=== PATIENT | female | born 1995 | race Caucasian/White ===

== ENCOUNTER 2018-09-15 19:43 | Emergency (ER) | payer OTHER ==
--- NOTE | 2018-09-15 21:11 | ERPHSYRPT ---
- History of Present Illness Time Seen by Provider: 09/15/18 21:07 Source: patient, family Exam Limitations: no limitations Patient Subjective Stated Complaint: pt states she has been having vaginal pain and pain after urinating, and urinary frequency Triage Nursing Assessment: pt alert and oriented, answers questions approp. respirations nonlabored with lungs cta. abd soft and nontender to light palpation. pt ambulatory with steady gati noted. respirations nonlabored with lungs cta. urine clear yellow. Physician History: The patient is a 22-year-old female with her mother complaining that she had a sudden onset of urinary urgency, frequency, and burning with urination that began at 3 PM today. She denies fever or chills. She denies back pain. She is on the Depo shot and has not been sexually active for months. She takes no prescription medicines. She did take a 600 mg ibuprofen 2 hours ago. The patient had a bowel movement today. She has 1 normally about one time a week. Her past medical history is significant for cholecystectomy and . Timing/Duration: today Activites at Onset: none Quality: burning Onset Location: urethral Pain Radiation: none Severity of Pain-Max: moderate Severity of Pain-Current: moderate Prior abdominal problems: none Sexual intercourse history: greater than 2 months ago Modifying Factors: Improves With: analgesics, urinating Associated Symptoms: urinary frequency, No loss of bladder control Allergies/Adverse Reactions: latex Allergy (Verified 09/15/18 20:32) Hx Tetanus, Diphtheria Vaccination/Date Given: No Hx Influenza Vaccination/Date Given: Yes (2017) Hx Pneumococcal Vaccination/Date Given: No - Review of Systems Constitutional: No Fever, No Chills Eyes: No Symptoms Ears, Nose, & Throat: No Symptoms Respiratory: No Cough, No Dyspnea Cardiac: No Chest Pain, No Edema, No Syncope Abdominal/Gastrointestinal: No Abdominal Pain, No Nausea, No Vomiting, No Diarrhea Genitourinary Symptoms: Dysuria, Frequency, Urgency Musculoskeletal: No Back Pain, No Neck Pain Skin: No Rash Neurological: No Dizziness, No Focal Weakness, No Sensory Changes Psychological: No Symptoms Endocrine: No Symptoms Hematologic/Lymphatic: No Symptoms Immunological/Allergic: No Symptoms All Other Systems: Reviewed and Negative - Past Medical History Pertinent Past Medical History: No Neurological History: No Pertinent History ENT History: No Pertinent History Respiratory History: Asthma Endocrine Medical History: No Pertinent History Musculoskeletal History: No Pertinent History GI Medical History: No Pertinent History History: No Pertinent History Psycho-Social History: No Pertinent History - Past Surgical History Past Surgical History: Yes Neuro Surgical History: No Pertinent History Cardiac: No Pertinent History Respiratory: No Pertinent History Gastrointestinal: Cholecystectomy Genitourinary: No Pertinent History Musculoskeletal: No Pertinent History Female Surgical History: Section - Social History Smoking Status: Never smoker Exposure to second hand smoke: No Drug Use: none Patient Lives Alone: No - Female History Hx Last Menstrual Period: depo shot Hx Now: No - Nursing Vital Signs Nursing Vital Signs: Initial Vital Signs Temperature 98.1 F 09/15/18 20:23 Pulse Rate 66 09/15/18 20:23 Respiratory Rate 18 09/15/18 20:23 Blood Pressure 142/95 09/15/18 20:23 O2 Sat by Pulse Oximetry 100 09/15/18 20:23 Pain Scale Pain Intensity 2 - Physical Exam General Appearance: mild distress Eye Exam: PERRL/EOMI, eyes nml inspection Ears, Nose, Throat Exam: normal ENT inspection, TMs normal, pharynx normal, moist mucous membranes Neck Exam: normal inspection, non-tender, supple, full range of motion Respiratory Exam: normal breath sounds, lungs clear, No respiratory distress Cardiovascular Exam: regular rate/rhythm, normal heart sounds, normal peripheral pulses Gastrointestinal/Abdomen Exam: soft, No tenderness, No mass Pelvic Exam: not done Rectal Exam: not done Back Exam: normal inspection, normal range of motion, No CVA tenderness, No vertebral tenderness Extremity Exam: normal inspection, normal range of motion, pelvis stable Neurologic Exam: alert, oriented x 3, cooperative, logger driving horses II-XII nml as tested, normal mood/affect, sensation nml, No motor deficits Skin Exam: normal color, warm, dry Lymphatic Exam: No adenopathy SpO2 Interpretation: normal SpO2: 100 Oxygen Delivery: Room Air - CT Exams Abdomen/Pelvis CT Interpretation: Tele-radiologist Report (per Dr Lund), No appendicitis, Other (no acute findings.) Ordered Tests: Active Orders 24 hr Category Date Time Status IV Insertion STAT Care 09/15/18 22:02 Active ABDOMEN AND PELVIS W/0 CONTRAS [CT] Stat Exams 09/15/18 22:56 Taken CBC W DIFF Stat Lab 09/15/18 22:21 Completed CMP Stat Lab 09/15/18 22:21 Completed CULTURE,URINE Stat Lab 09/15/18 21:24 Received HCG QUALITATIVE,SERUM Stat Lab 09/15/18 22:21 Completed LIPASE Stat Lab 09/15/18 22:21 Completed Lactic Acid Stat Lab 09/15/18 22:14 Completed UA W/RFX UR CULTURE Stat Lab 09/15/18 21:24 Completed Medication Summary Discontinued Medications Generic Name Dose Route Start Last Admin Trade Name Freq PRN Reason Stop Dose Admin Ketorolac Tromethamine 30 mg 09/15/18 22:14 09/15/18 22:23 Toradol 30 Mg Injection IV 09/15/18 22:15 30 mg STAT ONE Administration Ketorolac Tromethamine Confirm 09/15/18 22:22 Toradol 30 Mg Injection Administered 09/15/18 22:23 Dose 30 mg .ROUTE .STK-MED ONE Phenazopyridine HCl 200 mg 09/15/18 21:11 09/15/18 21:19 Pyridium 200 Mg PO 09/15/18 21:12 200 mg TID STA Administration Phenazopyridine HCl Confirm 09/15/18 21:17 Pyridium 200 Mg Administered 09/15/18 21:18 Dose 200 mg .ROUTE .STK-MED ONE Lab/Rad Data: Laboratory Result Diagrams 09/15/18 22:21 09/15/18 22:21 Laboratory Results 09/15/18 09/15/18 09/15/18 Range/Units 22:21 22:21 22:21 WBC 12.8 H (4.0-10.5) K/mm3 RBC 4.39 (4.1-5.4) M/mm3 Hgb 13.2 (12.0-16.0) gm/dl Hct 39.9 (35-47) % MCV 90.9 (78-100) fl MCH 30.1 (26-32) pg MCHC 33.1 (32-36) g/dl RDW 13.0 (11.5-14.0) % Plt Count 220 (150-450) K/mm3 MPV 10.0 H (6-9.5) fl Gran % 64.4 (36.0-66.0) % Eos # (Auto) 0.06 (0-0.5) Absolute Lymphs (auto) 3.91 (1.0-4.6) Absolute Monos (auto) 0.57 (0.0-1.3) Lymphocytes % 30.5 (24.0-44.0) % Monocytes % 4.4 (0.0-12.0) % Eosinophils % 0.5 (0.00-5.0) % Basophils % 0.2 (0.0-0.4) % Absolute Granulocytes 8.26 H (1.4-6.9) Basophils # 0.02 (0-0.4) Sodium 142 (137-145) mmol/L Potassium 3.5 (3.5-5.1) mmol/L Chloride 107 (98-107) mmol/L Carbon Dioxide 23 (22-30) mmol/L Anion Gap 15.5 H (5-15) MEQ/L BUN 10 (7-17) mg/dL Creatinine 0.62 (0.52-1.04) mg/dL Estimated GFR > 60.0 ML/MIN Glucose 97 (74-106) mg/dL Lactic Acid (0.4-2.0) Calcium 9.0 (8.4-10.2) mg/dL Total Bilirubin 0.50 (0.2-1.3) mg/dL AST 19 (14-36) U/L ALT 17 (0-35) U/L Alkaline Phosphatase 91 (38-126) U/L Serum Total Protein 7.7 (6.3-8.2) g/dL Albumin 4.2 (3.5-5.0) g/dL Lipase 46 (23-300) U/L Serum , Qual NEGATIVE (Negative) Urine Color (YELLOW) Urine Appearance (CLEAR) Urine pH (5-6) Ur Specific [place] (1.005-1.025) Urine Protein (Negative) Urine Ketones (NEGATIVE) Urine Blood (0-5) Woo/ul Urine Nitrite (NEGATIVE) Urine Bilirubin (NEGATIVE) Urine Urobilinogen (0-1) mg/dL Ur Leukocyte Esterase (NEGATIVE) Urine WBC (Auto) (0-5) /HPF Urine RBC (Auto) (0-2) /HPF U Epithel Cells (Auto) (FEW) /HPF Urine Bacteria (Auto) (NEGATIVE) /HPF Other Casts (Auto) (NEGATIVE) /LPF Urine Mucus (Auto) (NEGATIVE) /HPF Urine Culture Reflexed (NO) Urine Glucose (NEGATIVE) mg/dL 12/19/18 12/19/18 Range/Units 22:14 21:24 WBC (4.0-10.5) K/mm3 RBC (4.1-5.4) M/mm3 Hgb (12.0-16.0) gm/dl Hct (35-47) % MCV (78-100) fl MCH (26-32) pg MCHC (32-36) g/dl RDW (11.5-14.0) % Plt Count (150-450) K/mm3 MPV (6-9.5) fl Gran % (36.0-66.0) % Eos # (Auto) (0-0.5) Absolute Lymphs (auto) (1.0-4.6) Absolute Monos (auto) (0.0-1.3) Lymphocytes % (24.0-44.0) % Monocytes % (0.0-12.0) % Eosinophils % (0.00-5.0) % Basophils % (0.0-0.4) % Absolute Granulocytes (1.4-6.9) Basophils # (0-0.4) Sodium (137-145) mmol/L Potassium (3.5-5.1) mmol/L Chloride (98-107) mmol/L Carbon Dioxide (22-30) mmol/L Anion Gap (5-15) MEQ/L BUN (7-17) mg/dL Creatinine (0.52-1.04) mg/dL Estimated GFR ML/MIN Glucose (74-106) mg/dL Lactic Acid 1.7 (0.4-2.0) Calcium (8.4-10.2) mg/dL Total Bilirubin (0.2-1.3) mg/dL AST (14-36) U/L ALT (0-35) U/L Alkaline Phosphatase (38-126) U/L Serum Total Protein (6.3-8.2) g/dL Albumin (3.5-5.0) g/dL Lipase (23-300) U/L Serum , Qual (Negative) Urine Color STRAW (YELLOW) Urine Appearance CLEAR (CLEAR) Urine pH 6.0 (5-6) Ur Specific [place] 1.009 (1.005-1.025) Urine Protein NEGATIVE (Negative) Urine Ketones NEGATIVE (NEGATIVE) Urine Blood MODERATE (0-5) Woo/ul Urine Nitrite NEGATIVE (NEGATIVE) Urine Bilirubin NEGATIVE (NEGATIVE) Urine Urobilinogen NEGATIVE (0-1) mg/dL Ur Leukocyte Esterase LARGE (NEGATIVE) Urine WBC (Auto) 3-5 (0-5) /HPF Urine RBC (Auto) 0-2 (0-2) /HPF U Epithel Cells (Auto) RARE (FEW) /HPF Urine Bacteria (Auto) RARE (NEGATIVE) /HPF Other Casts (Auto) NEGATIVE (NEGATIVE) /LPF Urine Mucus (Auto) SLIGHT (NEGATIVE) /HPF Urine Culture Reflexed YES (NO) Urine Glucose NEGATIVE (NEGATIVE) mg/dL - Progress Progress: improved Progress Note: 09/16/18 00:40 I discussed the findings of the labs results and of the imaging study of her abdomen and pelvis. The patient was offered a gynecologic exam and the patient declined. The patient requested antibiotics for possible UTI. The patient will be given Rocephin 1 g IV. She is then to follow-up with her primary medical doctor in one to 2 days. Blood Culture(s) Obtained: No Antibiotics given: Yes - Departure Time of Disposition: 00:41 Departure Disposition: Home Clinical Impression: Abdominal pain Condition: Stable Critical Care Time: No Referrals: CASS TOURE MD [Primary Care Provider] - Additional Instructions: You have some abdominal pain and a mild elevation of your white count. You were given Toradol 30 mg IV and Rocephin 1 g by IV in the ER. Continue with ciprofloxacin 500 mg 2 times a day for 7 days. Follow-up with your primary medical doctor in one to 2 days. Prescriptions: Ciprofloxacin [Cipro 500 MG] 1 tab PO BID #14 tablet
[2018-09-15] MEDS ORDERED: PYRIDIUM 200 MG ONE (21:17)
[2018-09-15] MEDS: PYRIDIUM 200 MG PO STA (21:19)
[2018-09-15 21:33] LABS: Appearance CLEAR (CLEAR); Bilirubin NEGATIVE (NEGATIVE); Blood MODERATE Ery/ul (0-5); Glucose NEGATIVE (NEGATIVE); Ketones NEGATIVE (NEGATIVE); Leukocyte Esterase LARGE (NEGATIVE); Nitrite NEGATIVE (NEGATIVE); Protein,Urine Dip NEGATIVE (Negative); Specific Gravity 1.009 (1.005-1.025); Urobilinogen NEGATIVE mg/dL (0-1)
[2018-09-15] MEDS ORDERED: TORAdol 30 mg Injection ONE (22:22)
[2018-09-15] MEDS: TORAdol 30 mg Injection IV ONE (22:23)
[2018-09-15 22:27] LABS: BASOPHIL % 0.2 % (0.0-0.4); Basophil (Absolute #) 0.02 (0-0.4); Eosinophil % 0.5 % (0.00-5.0); Eosinophil (Absolute #) 0.06 (0-0.5); Granulocyte Absolute (ANC) 8.26 (1.4-6.9); Granulocytes % 64.4 % (36.0-66.0); Hematocrit 39.9 % (35-47); Hemoglobin 13.2 gm/dl (12.0-16.0); Lymphocyte (Absolute #) 3.91 (1.0-4.6); Lymphocytes % 30.5 % (24.0-44.0); Mean Cell Volume 90.9 fl (78-100); Mean Corpuscular Hemoglobin 30.1 pg (26-32); Mean Corpuscular Hgb Concent. 33.1 g/dl (32-36); Monocyte (Absolute #) 0.57 (0.0-1.3); Monocytes % 4.4 % (0.0-12.0); Platelet Count 220 K/mm3 (150-450); Red Blood Count 4.39 M/mm3 (4.1-5.4); White Blood Count 12.8 K/mm3 (4.0-10.5)
[2018-09-15 22:40] LABS: ALBUMIN 4.2 g/dL (3.5-5.0); ALKALINE PHOSPHATASE 91 U/L (38-126); ANION GAP 15.5 MEQ/L (5-15); BLOOD UREA NITROGEN 10 mg/dL (7-17); CHLORIDE 107 mmol/L (98-107); Carbon Dioxide 23 mmol/L (22-30); Creatinine 1 0.62 mg/dL (0.52-1.04); Glucose 97 mg/dL (74-106); LIPASE 46 U/L (23-300); Potassium 3.5 mmol/L (3.5-5.1); SGOT/AST 19 U/L (14-36); SGPT/ALT 17 U/L (0-35); SODIUM 142 mmol/L (137-145); Total Protein 7.7 g/dL (6.3-8.2)
[2018-09-16] MEDS ORDERED: ROCEPHIN 1 Gm-D5w 50 ml Bag** 1 G/50 ML IVPB IV ONE (00:46)
[2018-09-16] MEDS: ROCEPHIN 1 Gm-D5w 50 ml Bag** 1 G/50 ML IVPB IV STA (00:50)
[2018-09-16 01:23] VITALS: BP 118/72; PULSE 84; O2SAT 99
--- NOTE | 2018-09-16 08:49 | XRAY ---
Indication: Left pelvic pain. Elevated WBC. Multiple contiguous axial images obtained through the abdomen and pelvis without contrast as ordered. Comparison: April 23, 2016. Lung bases remain clear. Heart is not enlarged. Noncontrasted stomach and bowel loops appear nonobstructed. Appendix not seen. There is now mild diffuse scattered colonic fecal debris throughout. No free fluid/air. Again previous cholecystectomy. Remaining liver, pancreas, spleen, adrenal glands, kidneys, ureters, bladder, uterus, and aorta appear unremarkable for noncontrast exam. Osseous structures intact. No ventral or inguinal hernias. Impression: 1. Mild fecal stasis without obstruction. 2. Remaining CT abdomen/pelvis without contrast exam is negative. Comment: Preliminary interpretation was made by [facility]. No critical discrepancy. CT DI 27.05
== END 2018-09-16 01:45 | disposition home or self-care (01) ==
LOC: ED 19:43
DX: R10.9 Unspecified abdominal pain (principal); R39.15 Urgency of urination; R35.0 Frequency of micturition; D72.829 Elevated white blood cell count, unspecified
CPT/HCPCS: 36000; 36415; 74176; 80053; 81001; 81025; 83605; 83690; 85025; 87077; 87086; 87186; 96374; 99284; J0696; J1885; A9270-GY

== ENCOUNTER 2020-05-19 15:54 | Emergency (ER) | payer BC ==
[2020-05-19] MEDS ORDERED: Zofran 4 MG/2 ML VIAL IV ONE (16:24)
[2020-05-19] MEDS ORDERED: Sodium Chloride 0.9% 1000 ML 1,000 ML IV STA (16:24)
[2020-05-19 17:02] LABS: Appearance CLEAR (CLEAR); Bacteria MODERATE /HPF (NEGATIVE); Bilirubin NEGATIVE (NEGATIVE); Blood NEGATIVE Ery/ul (0-5); Epithelial Cells RARE /HPF (FEW); Glucose NEGATIVE (NEGATIVE); Ketones NEGATIVE (NEGATIVE); Leukocyte Esterase NEGATIVE (NEGATIVE); Mucus SLIGHT /HPF (NEGATIVE); Nitrite NEGATIVE (NEGATIVE); Protein,Urine Dip NEGATIVE (Negative); Specific Gravity 1.005 (1.005-1.025); Urobilinogen NEGATIVE mg/dL (0-1)
--- NOTE | 2020-05-19 17:05 | ERPHSYRPT ---
- History of Present Illness Time Seen by Provider: 05/19/20 16:12 Historian: patient Exam Limitations: no limitations Patient Subjective Stated Complaint: pt here for vomiting since last night, she has tonils removed thursday, she took zofran at 1400 today. Triage Nursing Assessment: pt alert, walked in with face mask on, resp easy, skin w/d/p, abd soft, no bleeding from throat Physician History: 24 years old female presented in the ER with chief complaint of sudden onset nausea vomiting since yesterday. Patient report having tonsillectomy 5 days ago and has decreased oral intake for a few days. She has multiple episodes of nonprojectile, nonbilious vomiting with no hematemesis. She has taken Zofran at home with no significant relief. She denies any abdominal pain. Last bowel movement 5 days ago. Patient does have history of constipation which is quite normal for her to have a bowel movement once a week. No fever or chills reported. She has some soreness in the throat which is improving since surgery. No fever or chills reported. Feels weak and dehydrated. Patient reports taking liquid hydrocodone every 4 hour since her surgery along with ibuprofen. Allergies/Adverse Reactions: latex Allergy (Verified 05/19/20 16:09) Home Medications: Citalopram Hydrobromide [Citalopram HBr] 1 ea DAILY 05/19/20 [History] Hydrocodone/Acetaminophen [Hydrocodone-Acetamn 7.5-325/15] 1 ea QID 05/19/20 [History] Ibuprofen 10 ml TID 05/19/20 [History] Ondansetron [Ondansetron Odt] 1 ea TID 05/19/20 [History] Hx Tetanus, Diphtheria Vaccination/Date Given: Yes Hx Influenza Vaccination/Date Given: Yes Hx Pneumococcal Vaccination/Date Given: No Immunizations Up to Date: Yes Travel Risk - International Travel Have you traveled outside of the country in past 3 weeks: No - Coronavirus Screening Are you exhibiting any of the following symptoms?: Yes Symptoms: Vomiting/Diarrhea Close contact with a COVID-19 positive Pt in past 14-21 Days: No - Review of Systems Constitutional: Fatigue, Weakness Eyes: No Symptoms Ears, Nose, & Throat: Throat Pain, Throat Swelling, Painful Swallowing Respiratory: No Symptoms Cardiac: No Symptoms Abdominal/Gastrointestinal: Nausea, Vomiting, Constipation Genitourinary Symptoms: No Symptoms Musculoskeletal: No Symptoms Skin: No Symptoms Neurological: No Symptoms Psychological: No Symptoms Endocrine: No Symptoms Hematologic/Lymphatic: No Symptoms Immunological/Allergic: No Symptoms - Past Medical History Pertinent Past Medical History: No Neurological History: No Pertinent History ENT History: No Pertinent History Respiratory History: Asthma Endocrine Medical History: No Pertinent History Musculoskeletal History: No Pertinent History GI Medical History: No Pertinent History History: No Pertinent History Psycho-Social History: No Pertinent History - Past Surgical History Past Surgical History: Yes Neuro Surgical History: No Pertinent History Cardiac: No Pertinent History Respiratory: No Pertinent History Gastrointestinal: Cholecystectomy Genitourinary: No Pertinent History Musculoskeletal: No Pertinent History Female Surgical History: Section - Social History Smoking Status: Never smoker Exposure to second hand smoke: No Drug Use: none Patient Lives Alone: No - Female History Hx Last Menstrual Period: week ago Hx Now: No - Nursing Vital Signs Nursing Vital Signs: Initial Vital Signs Temperature 98.3 F 05/19/20 15:59 Pulse Rate 71 05/19/20 15:59 Blood Pressure 151/85 05/19/20 15:59 O2 Sat by Pulse Oximetry 99 05/19/20 15:59 Pain Scale Pain Intensity 4 - Physical Exam General Appearance: no apparent distress, alert Eye Exam: PERRL/EOMI, eyes nml inspection Ears, Nose, Throat Exam: TMs normal, pharyngeal erythema (No bleeding) Neck Exam: normal inspection, supple, full range of motion Respiratory Exam: normal breath sounds, lungs clear Cardiovascular Exam: regular rate/rhythm, normal heart sounds Gastrointestinal/Abdomen Exam: soft, normal bowel sounds, No tenderness Back Exam: normal inspection Extremity Exam: normal inspection Neurologic Exam: alert, oriented x 3, cooperative Skin Exam: normal color, warm SpO2 Interpretation: normal SpO2: 99 O2 Delivery: Room Air Ordered Tests: Active Orders 24 hr Category Date Time Status IV Insertion STAT Care 05/19/20 16:24 Active NPO (ED) STAT Care 05/19/20 16:24 Active OBSTR/ACUTE ABDOMEN SERIES Stat Exams 05/19/20 16:24 Taken AMYLASE Stat Lab 05/19/20 17:01 Completed CBC W DIFF Stat Lab 05/19/20 17:01 Completed CMP Stat Lab 05/19/20 17:01 Completed HCG,QUALITATIVE URINE Stat Lab 05/19/20 16:42 Completed LIPASE Stat Lab 05/19/20 17:01 Completed UA W/RFX UR CULTURE Stat Lab 05/19/20 16:42 Completed Medication Summary Discontinued Medications Generic Name Dose Route Start Last Admin Trade Name Jaswinder PRN Reason Stop Dose Admin Sodium Chloride 1,000 mls @ 999 mls/hr 05/19/20 16:24 05/19/20 17:18 Sodium Chloride 0.9% 1000 Ml IV 05/19/20 17:24 999 mls/hr .Q1H1M STA Administration Sodium Chloride Confirm 05/19/20 17:17 Sodium Chloride 0.9% 1000 Ml Administered 05/19/20 17:18 Dose 1,000 mls @ ud .ROUTE .STK-MED ONE Ondansetron HCl 4 mg 05/19/20 16:24 05/19/20 17:18 Zofran 4 Mg/2 Ml Vial IV 05/19/20 16:25 4 mg STAT ONE Administration Ondansetron HCl Confirm 05/19/20 17:17 Zofran 4 Mg/2 Ml Vial Administered 05/19/20 17:18 Dose 4 mg .ROUTE .STK-MED ONE Lab/Rad Data: Laboratory Result Diagrams 05/19/20 17:01 05/19/20 17:01 Laboratory Results 05/19/20 05/19/20 05/19/20 Range/Units 17:01 17:01 16:42 WBC 10.1 (4.0-10.5) K/mm3 RBC 4.85 (4.1-5.4) M/mm3 Hgb 14.4 (12.0-16.0) gm/dl Hct 44.5 (35-47) % MCV 91.8 (78-100) fl MCH 29.7 (26-32) pg MCHC 32.4 (32-36) g/dl RDW 12.4 (11.5-14.0) % Plt Count 242 (150-450) K/mm3 MPV 9.5 (7.5-11.0) fl Gran % 73.0 H (36.0-66.0) % Eos # (Auto) 0.17 (0-0.5) Absolute Lymphs (auto) 2.14 (1.0-4.6) Absolute Monos (auto) 0.40 (0.0-1.3) Lymphocytes % 21.2 L (24.0-44.0) % Monocytes % 4.0 (0.0-12.0) % Eosinophils % 1.7 (0.00-5.0) % Basophils % 0.1 (0.0-0.4) % Absolute Granulocytes 7.38 H (1.4-6.9) Basophils # 0.01 (0-0.4) Sodium 137 (137-145) mmol/L Potassium 4.4 (3.5-5.1) mmol/L Chloride 99 (98-107) mmol/L Carbon Dioxide 30 (22-30) mmol/L Anion Gap 12.2 (5-15) MEQ/L BUN 7 (7-17) mg/dL Creatinine 0.57 (0.52-1.04) mg/dL Estimated GFR > 60.0 ML/MIN Glucose 97 (74-106) mg/dL Calcium 9.5 (8.4-10.2) mg/dL Total Bilirubin 0.60 (0.2-1.3) mg/dL AST 27 (14-36) U/L ALT 30 (0-35) U/L Alkaline Phosphatase 105 (38-126) U/L Serum Total Protein 8.5 H (6.3-8.2) g/dL Albumin 4.6 (3.5-5.0) g/dL Amylase 78 (30-110) U/L Lipase 24 (23-300) U/L Urine Color (YELLOW) Urine Appearance (CLEAR) Urine pH (5-6) Ur Specific [place] (1.005-1.025) Urine Protein (Negative) Urine Ketones (NEGATIVE) Urine Blood (0-5) Woo/ul Urine Nitrite (NEGATIVE) Urine Bilirubin (NEGATIVE) Urine Urobilinogen (0-1) mg/dL Ur Leukocyte Esterase (NEGATIVE) Urine WBC (Auto) (0-5) /HPF Urine RBC (Auto) (0-2) /HPF U Epithel Cells (Auto) (FEW) /HPF Urine Bacteria (Auto) (NEGATIVE) /HPF Urine Mucus (Auto) (NEGATIVE) /HPF Urine Culture Reflexed (NO) Urine Glucose (NEGATIVE) mg/dL Urine HCG, Qual NEGATIVE (Negative) 05/19/20 Range/Units 16:42 WBC (4.0-10.5) K/mm3 RBC (4.1-5.4) M/mm3 Hgb (12.0-16.0) gm/dl Hct (35-47) % MCV (78-100) fl MCH (26-32) pg MCHC (32-36) g/dl RDW (11.5-14.0) % Plt Count (150-450) K/mm3 MPV (7.5-11.0) fl Gran % (36.0-66.0) % Eos # (Auto) (0-0.5) Absolute Lymphs (auto) (1.0-4.6) Absolute Monos (auto) (0.0-1.3) Lymphocytes % (24.0-44.0) % Monocytes % (0.0-12.0) % Eosinophils % (0.00-5.0) % Basophils % (0.0-0.4) % Absolute Granulocytes (1.4-6.9) Basophils # (0-0.4) Sodium (137-145) mmol/L Potassium (3.5-5.1) mmol/L Chloride (98-107) mmol/L Carbon Dioxide (22-30) mmol/L Anion Gap (5-15) MEQ/L BUN (7-17) mg/dL Creatinine (0.52-1.04) mg/dL Estimated GFR ML/MIN Glucose (74-106) mg/dL Calcium (8.4-10.2) mg/dL Total Bilirubin (0.2-1.3) mg/dL AST (14-36) U/L ALT (0-35) U/L Alkaline Phosphatase (38-126) U/L Serum Total Protein (6.3-8.2) g/dL Albumin (3.5-5.0) g/dL Amylase (30-110) U/L Lipase (23-300) U/L Urine Color STRAW (YELLOW) Urine Appearance CLEAR (CLEAR) Urine pH 8.0 (5-6) Ur Specific [place] 1.005 (1.005-1.025) Urine Protein NEGATIVE (Negative) Urine Ketones NEGATIVE (NEGATIVE) Urine Blood NEGATIVE (0-5) Woo/ul Urine Nitrite NEGATIVE (NEGATIVE) Urine Bilirubin NEGATIVE (NEGATIVE) Urine Urobilinogen NEGATIVE (0-1) mg/dL Ur Leukocyte Esterase NEGATIVE (NEGATIVE) Urine WBC (Auto) NONE (0-5) /HPF Urine RBC (Auto) NONE (0-2) /HPF U Epithel Cells (Auto) RARE (FEW) /HPF Urine Bacteria (Auto) MODERATE (NEGATIVE) /HPF Urine Mucus (Auto) SLIGHT (NEGATIVE) /HPF Urine Culture Reflexed NO (NO) Urine Glucose NEGATIVE (NEGATIVE) mg/dL Urine HCG, Qual (Negative) - Progress Progress: improved, re-examined Progress Note: 05/19/20 19:05 She is given a fluid bolus along with Zofran, on reevaluation feeling better. She did not have any vomiting while in the ER. Has stable work-up in the ER including electrolytes and renal functions. Patient does have constipation and has been taking hydrocodone for the last few days which is worsening her c onstipation and also having some nausea vomiting associated with it. I would give her a prescription of Phenergan to take as needed as Zofran was not working earlier. Discussed signs symptoms of worsening needing return to ER which she seems understanding. Stable for discharge. Counseled pt/family regarding: lab results, diagnosis, need for follow-up, rad results - Departure Departure Disposition: Home Clinical Impression: Nausea & vomiting Qualifiers: Vomiting type: unspecified Vomiting Intractability: non-intractable Qualified Code(s): R11.2 - Nausea with vomiting, unspecified Constipation Qualifiers: Constipation type: unspecified constipation type Qualified Code(s): K59.00 - Constipation, unspecified Condition: Stable Critical Care Time: No Referrals: CASS TOURE MD [Primary Care Provider] - Follow Up with PCP/3 days Instructions: Nausea and Vomiting, Adult (DC) Additional Instructions: Take Phenergan/Zofran for nausea vomiting on alternate basis as needed. Drink plenty of fluids. Take MiraLAX and stool softener regularly. Follow-up with primary care for reevaluation. Return to ER for any worsening. Prescriptions: Promethazine HCl 25 mg [Phenergan 25 mg] 25 mg PO Q8H PRN PRN #10 tablet PRN Reason: Vomiting
[2020-05-19 17:07] LABS: Absolute Neutrophil Ct (ANC) 7.38 (1.4-6.9); BASOPHIL % 0.1 % (0.0-0.4); Basophil (Absolute #) 0.01 (0-0.4); Eosinophil % 1.7 % (0.00-5.0); Eosinophil (Absolute #) 0.17 (0-0.5); Hematocrit 44.5 % (35-47); Hemoglobin 14.4 gm/dl (12.0-16.0); Lymphocyte (Absolute #) 2.14 (1.0-4.6); Lymphocytes % 21.2 % (24.0-44.0); Mean Cell Volume 91.8 fl (78-100); Mean Corpuscular Hemoglobin 29.7 pg (26-32); Mean Corpuscular Hgb Concent. 32.4 g/dl (32-36); Mean Platelet Volume 9.5 fl (7.5-11.0); Platelet Count 242 K/mm3 (150-450); Red Blood Count 4.85 M/mm3 (4.1-5.4); Red Cell Distribution Width 12.4 % (11.5-14.0); White Blood Count 10.1 K/mm3 (4.0-10.5)
[2020-05-19] MEDS ORDERED: Sodium Chloride 0.9% 1000 ML 1,000 ML ONE (17:17)
[2020-05-19] MEDS ORDERED: Zofran 4 MG/2 ML VIAL ONE (17:17)
[2020-05-19 17:19] LABS: ALBUMIN 4.6 g/dL (3.5-5.0); ALKALINE PHOSPHATASE 105 U/L (38-126); AMYLASE 78 U/L (30-110); ANION GAP 12.2 MEQ/L (5-15); BLOOD UREA NITROGEN 7 mg/dL (7-17); CHLORIDE 99 mmol/L (98-107); Calcium 9.5 mg/dL (8.4-10.2); Carbon Dioxide 30 mmol/L (22-30); Creatinine 1 0.57 mg/dL (0.52-1.04); Glucose 97 mg/dL (74-106); LIPASE 24 U/L (23-300); Potassium 4.4 mmol/L (3.5-5.1); SGOT/AST 27 U/L (14-36); SGPT/ALT 30 U/L (0-35); SODIUM 137 mmol/L (137-145); Total Protein 8.5 g/dL (6.3-8.2)
[2020-05-19 18:20] VITALS: O2SAT 99
[2020-05-19 19:10] VITALS: BP 115/80; PULSE 70
--- NOTE | 2020-05-19 22:12 | XRAY ---
Indication: Nausea and vomiting. Comparison: None 2 view abdomen nonacute and nonobstructed with mild diffuse scattered colonic fecal debris and cholecystectomy clips. Solid organs unremarkable. Osseous structures intact with mild double curvature thoracolumbar scoliosis. Single PA chest demonstrates normal heart, lungs, and bony thorax. Impression: Mild diffuse fecal stasis. Nonacute one view chest.
== END 2020-05-19 19:16 | disposition home or self-care (01) ==
LOC: ED 15:54
DX: R11.2 Nausea with vomiting, unspecified (principal); K59.00 Constipation, unspecified; Z79.899 Other long term (current) drug therapy
CPT/HCPCS: 36000; 36415; 74022; 80053; 81001; 82150; 83690; 84703; 85025; 96374; 99284; J2405

== ENCOUNTER 2022-05-14 04:55 | Inpatient (IN) | payer OTHER ==
[2022-05-14 05:24] LABS: Appearance CLEAR (CLEAR); Bilirubin NEGATIVE (NEGATIVE); Glucose NEGATIVE (NEGATIVE); Ketones NEGATIVE (NEGATIVE)
[2022-05-14 05:25] LABS: Dipstick done @ ? MAIN LAB; Nitrite NEGATIVE (NEGATIVE); Ph 6.5 (5-6); Protein,Urine Dip NEGATIVE (Negative); RBC NEGATIVE Ery/ul (0-5); Specific Gravity 1.025 (1.005-1.025); Urobilinogen 0.2 mg/dL (0-1)
[2022-05-14] MEDS: Lactated Ringers 1,000 ML IV SCH ×2 (05:25→06:35)
[2022-05-14 05:28] LABS: Bacteria MODERATE /HPF (NEGATIVE); Epithelial Cells RARE /HPF (FEW); Mucus SLIGHT /HPF (NEGATIVE); Urine Cultured Indicated? YES
[2022-05-14 05:38] LABS: Amphetamine,Urine NEGATIVE (NEGATIVE); Barbiturate,Urine NEGATIVE (NEGATIVE); Benzodiazepine,Urine NEGATIVE (NEGATIVE); Cocaine,Urine NEGATIVE (NEGATIVE); Methadone,Urine NEGATIVE (NEGATIVE); Opiate,Urine NEGATIVE (NEGATIVE); PCP,Urine NEGATIVE (NEGATIVE); THC,Urine NEGATIVE (NEGATIVE)
[2022-05-14] MEDS ORDERED: Pepcid 20 MG VIAL IV SCH (06:00)
[2022-05-14] MEDS ORDERED: CEFAZOLIN 2 GM-D5W BAG** 2 GM/50 ML ML IV SCH (06:00)
[2022-05-14] MEDS ORDERED: SOD CITRATE-CITRIC ACID SOLN PO SCH (06:00)
[2022-05-14] MEDS ORDERED: Reglan 10 MG/2 ML IV SCH (06:00)
[2022-05-14 06:47] LABS: ABO TYPING B; Antibody Screen NEGATIVE (NEGATIVE); RH TYPING POSITIVE
[2022-05-14 06:55] LABS: Hemoglobin 11.3 g/dL (12.0-16.0); Mean Cell Volume 87.5 fL (78-100); Mean Corpuscular Hemoglobin 28.3 pg (26-32); Mean Corpuscular Hgb Concent. 32.3 g/dL (32-36); Mean Platelet Volume 10.4 fL (7.5-11.0); Platelet Count 239 x10^3/uL (150-450); Red Cell Distribution Width 13.2 % (11.5-14.0); White Blood Count 15.6 x10^3/uL (4.0-10.5)
[2022-05-14] MEDS ORDERED: Lactated Ringers 1,000 ML IV SCH (07:00)
[2022-05-14 07:01] LABS: INR 1.03 (0.8-3.0); PROTIME 10.9 SECONDS (9.4-12.5); PTT 26.8 SECONDS (25.1-36.5)
[2022-05-14] MEDS ORDERED: Pitocin 10 UNITS/ML ONE (08:21)
[2022-05-14] MEDS ORDERED: Ephedrine Sulfate 50 MG/ML ONE (08:22)
[2022-05-14] MEDS ORDERED: PHENYLEPHRINE HCL ONE (08:22)
[2022-05-14] MEDS ORDERED: Lactated Ringers 1,000 ML IV ONE (08:23)
[2022-05-14] MEDS ORDERED: Astramorph-Pf 5 MG/10 ML ONE (08:26)
[2022-05-14] MEDS ORDERED: Zofran 4 MG/2 ML VIAL ONE (08:59)
[2022-05-14] MEDS ORDERED: Transderm Scop 1.5MG Patch TOP ONE (09:18)
[2022-05-14] MEDS ORDERED: EXPAREL 133 MG/10 ML VIAL IJ ONE (09:18)
[2022-05-14] MEDS ORDERED: Sensorcaine 0.25% 10 ML ONE (09:24)
[2022-05-14] MEDS ORDERED: Mylicon 80MG PO PRN (10:00)
[2022-05-14] MEDS ORDERED: PERCOCET TABLET 5/325MG PO PRN (10:00)
[2022-05-14] MEDS ORDERED: Ambien 10 MG PO PRN (10:00)
[2022-05-14] MEDS ORDERED: Zofran 4 MG/2 ML VIAL IV PRN (10:00)
[2022-05-14] MEDS ORDERED: TUCKS TP PRN (10:00)
[2022-05-14] MEDS ORDERED: Anucort-HC SUPPOSITORY PR PRN (10:00)
[2022-05-14] MEDS ORDERED: Sodium Chloride 0.9% 10 ML FLUSH Syringe IJ PRN (10:00)
[2022-05-14] MEDS ORDERED: NORCO 5/325 MG PO PRN (10:00)
[2022-05-14] MEDS ORDERED: DEMEROL 50 MG IV PRN (10:00)
[2022-05-14] MEDS ORDERED: CLARITIN 10 MG PO PRN (10:00)
[2022-05-14] MEDS ORDERED: Nubain 10 MG/ML IV PRN (10:00)
[2022-05-14] MEDS ORDERED: Narcan 0.4 MG/ML IV PRN (10:00)
[2022-05-14] MEDS ORDERED: LANSINOH 40 GM TOP PRN (10:00)
[2022-05-14] MEDS ORDERED: HOLD NARCOTIC ANALGESICS AND SEDATIVES X24 HR MC PRN (10:00)
[2022-05-14] MEDS: Dextrose 5%-Lr IV Solution 1000 ML 1,000 ML IV SCH ×2 (10:50→19:30)
[2022-05-14 13:30] LABS: Appearance CLEAR (CLEAR); Bilirubin NEGATIVE (NEGATIVE); Glucose NEGATIVE (NEGATIVE); Ketones TRACE (NEGATIVE); Nitrite NEGATIVE (NEGATIVE); Ph 7.5 (5-6); Protein,Urine Dip NEGATIVE (Negative); RBC NEGATIVE Ery/ul (0-5); Urobilinogen 0.2 mg/dL (0-1)
[2022-05-14 13:31] LABS: Dipstick done @ ? MAIN LAB
[2022-05-14 13:33] LABS: Bacteria NONE SEEN /HPF (NEGATIVE)
[2022-05-14] MEDS: BENADRYL 50 MG/ML IV PRN ×2 (13:41→21:14)
[2022-05-14] MEDS: MOTRIN 400 MG PO PRN ×2 (16:25→22:17)
[2022-05-14] MEDS: CEFAZOLIN 2 GM-D5W BAG** 2 GM/50 ML ML IV SCH (16:28)
[2022-05-14] MEDS: TYLENOL EXTRA STRENGTH 500 MG PO PRN (18:32)
[2022-05-15] MEDS: TYLENOL EXTRA STRENGTH 500 MG PO PRN ×3 (00:17→13:48)
[2022-05-15] MEDS: CEFAZOLIN 2 GM-D5W BAG** 2 GM/50 ML ML IV SCH (00:19)
[2022-05-15] MEDS: MOTRIN 400 MG PO PRN ×2 (04:37→11:06)
[2022-05-15 06:23] LABS: Absolute Neutrophil Ct (ANC) 8.69 x10^3/uL (1.4-6.9); Basophil (Absolute #) 0.03 x10^3/uL (0-0.4); Eosinophil % 1.1 % (0.00-5.0); Eosinophil (Absolute #) 0.14 x10^3/uL (0-0.5); Hematocrit 28.6 % (35-47); Hemoglobin 9.2 g/dL (12.0-16.0); Lymphocytes % 24.1 % (24.0-44.0); Mean Cell Volume 88.8 fL (78-100); Mean Corpuscular Hemoglobin 28.6 pg (26-32); Mean Corpuscular Hgb Concent. 32.2 g/dL (32-36); Mean Platelet Volume 10.1 fL (7.5-11.0); Monocyte (Absolute #) 0.84 x10^3/uL (0.0-1.3); Monocytes % 6.5 % (0.0-12.0); Neutrophil % 67.5 % (36.0-66.0); Platelet Count 209 x10^3/uL (150-450); Red Blood Count 3.22 x10^6/uL (4.1-5.4); Red Cell Distribution Width 13.1 % (11.5-14.0); White Blood Count 12.9 x10^3/uL (4.0-10.5)
--- NOTE | 2022-05-15 07:28 | PCM.NOTE ---
Date and Time: 05/15/22725 Subjective Assessment: POD 1 SP CSECTION PT RESTING IN BED AND DOING WELL AMBULATING AND TOLERATING DIET VSS AFEBRILE ABD; SOFT INCISION C/D/INTACT UTERUS; FIRM LOCHIA; MILD A/P SP CSECTION POD 1 PT DESIRES TO GO HOME TODAY MAY DC HOME THIS AFTERNOON SHOULD FU IN OFFICE IN 3 WKS. OBJECTIVE DATA Vital Signs: Vital Signs - 24 hr Temp Pulse Resp BP Pulse Ox 05/15/22 07:00 100 05/15/22 06:03 100 05/15/22 06:00 100 05/15/22 05:00 100 05/15/22 04:00 98.4 F 71 18 118/80 100 05/15/22 03:00 100 05/15/22 02:00 100 05/15/22 01:00 100 05/15/22 00:00 98.1 F 76 18 112/64 100 05/14/22 23:00 100 05/14/22 22:00 100 05/14/22 21:00 100 05/14/22 20:00 98.1 F 83 16 115/60 98 05/14/22 19:00 98 05/14/22 18:00 100 05/14/22 17:00 99 05/14/22 16:00 98 H 20 121/83 99 05/14/22 15:00 99 05/14/22 14:00 99 05/14/22 13:00 97 05/14/22 12:05 82 18 117/78 100 05/14/22 12:00 99 05/14/22 11:35 85 18 126/64 99 05/14/22 11:05 83 16 117/59 99 05/14/22 11:00 99 05/14/22 10:50 74 18 110/57 99 05/14/22 10:35 86 16 109/64 99 05/14/22 10:20 98.1 F 78 18 110/73 99 05/14/22 10:00 99 Pain Assessment - Last Documented Pain Intensity [Bilateral 3 Lower] Pain Intensity 0 Pain Scale Used 0-10 Pain Scale Intake and Output: Intake & Output 05/12/22 05/13/22 05/14/22 05/15/22 11:59 11:59 11:59 11:59 Intake Total 5267 Output Total 3575 Balance 1692 Weight 99.337 kg Lab Results: Lab Results-Last 24 Hours 05/14/22 05/15/22 Range/Units 08:58 06:00 WBC 12.9 H (4.0-10.5) x10^3/uL RBC 3.22 L (4.1-5.4) x10^6/uL Hgb 9.2 L (12.0-16.0) g/dL Hct 28.6 L (35-47) % MCV 88.8 (78-100) fL MCH 28.6 (26-32) pg MCHC 32.2 (32-36) g/dL RDW 13.1 (11.5-14.0) % Plt Count 209 (150-450) x10^3/uL MPV 10.1 (7.5-11.0) fL Gran % 67.5 H (36.0-66.0) % Immature Gran % (Auto) 0.6 H (0.00-0.4) % Nucleat RBC Rel Count 0.0 (0.00-0.1) % Eos # (Auto) 0.14 (0-0.5) x10^3/uL Immature Gran # (Auto) 0.08 H (0.00-0.03) x10^3u/L Absolute Lymphs (auto) 3.10 (1.0-4.6) x10^3/uL Absolute Monos (auto) 0.84 (0.0-1.3) x10^3/uL Absolute Nucleated RBC 0.00 (0.00-0.01) x10^3u/L Lymphocytes % 24.1 (24.0-44.0) % Monocytes % 6.5 (0.0-12.0) % Eosinophils % 1.1 (0.00-5.0) % Basophils % 0.2 (0.0-0.4) % Absolute Granulocytes 8.69 H (1.4-6.9) x10^3/uL Basophils # 0.03 (0-0.4) x10^3/uL Urinalys Dipstick Clnc MAIN LAB Urine Color YELLOW (YELLOW) Urine Appearance CLEAR (CLEAR) Urine pH 7.5 (5-6) Ur Specific [place]ruff 1.020 (1.005-1.025) POC Urine Protein Conf NEGATIVE (Negative) Urine Ketones TRACE (NEGATIVE) Urine Nitrite NEGATIVE (NEGATIVE) Urine Bilirubin NEGATIVE (NEGATIVE) Urine Urobilinogen 0.2 (0-1) mg/dL Urine Leukocytes NEGATIVE (NEGATIVE) Urine WBC (Auto) NONE (0-5) /HPF Urine RBC (Auto) NONE (0-2) /HPF U Epithel Cells (Auto) NONE (FEW) /HPF Urine Bacteria (Auto) NONE SEEN (NEGATIVE) /HPF Urine RBC NEGATIVE (0-5) Woo/ul Urine Glucose NEGATIVE (NEGATIVE) mg/dL Multi-Disciplinary Progress Notes: Multi-Disciplinary Progress Notes 05/14/22 09:46 Respiratory Note by Sona Zhang Baby born via . Baby crying immediately. Baby brought to warmer and dried and stimulated. Baby pink and continues to cry. Apgars 9/9 Initialized on 05/14/22 09:46 - END OF NOTE Assessment/Plan (1) S/P repeat low transverse Current Visit: Yes Status: Acute Code(s): Z98.891 - HISTORY OF UTERINE SCAR FROM PREVIOUS SURGERY
--- NOTE | 2022-05-15 07:34 | PCM.DS ---
Discharge Summary Date of Admission: 05/14/22 04:55 PT ADMITTED ON MAY 14 AND UNDERWENT REPEAT SECTION WITHOUT COMPLICATION AND DURING POSTOP PERIOD ABLE TO AMBULATE AND TOLERATE DIET. PT DESIRES TO BE DISCHARGED HOME TODAY. PT DELIVERED LIVE BABY GIRL ON MAY 14. STABLE HGB 9.2. PT DESIRES [facility] FOR PAIN MANAGEMENT AND WAS ADVISED TO FU IN OFFICE IN 3 WKS FOR POSTOP CHECK. ALL QUESTIONS ANSWERED TO HER SATISFACTION. Admitting Physician: PAPI GEORGE DO Consults: Consults on Case 05/14/22 05:00 Notify Anesthesia Provider PRN 05/14/22 08:00 Notify Physician ROUTINE 05/14/22 10:00 Notify Anesthesia Provider PRN Primary Care Provider: CASS TOURE Allergies Allergies latex Allergy (Verified 05/14/22 05:22) Hospital Summary - Vitals & Intake/Output Vital Signs: Vital Signs Temperature 98.4 F 05/15/22 04:00 Pulse Rate 71 05/15/22 04:00 Respiratory Rate 18 05/15/22 04:00 Blood Pressure 118/80 05/15/22 04:00 O2 Sat by Pulse Oximetry 100 05/15/22 07:00 Intake & Output: Intake & Output 05/12/22 05/13/22 05/14/22 05/15/22 11:59 11:59 11:59 11:59 Intake Total 5267 Output Total 3575 Balance 1692 Weight 99.337 kg - Lab Result Diagrams: 05/15/22 06:00 Lab Results-Last 24 Hrs: Lab Results-Last 24 Hours 05/14/22 05/15/22 Range/Units 08:58 06:00 WBC 12.9 H (4.0-10.5) x10^3/uL RBC 3.22 L (4.1-5.4) x10^6/uL Hgb 9.2 L (12.0-16.0) g/dL Hct 28.6 L (35-47) % MCV 88.8 (78-100) fL MCH 28.6 (26-32) pg MCHC 32.2 (32-36) g/dL RDW 13.1 (11.5-14.0) % Plt Count 209 (150-450) x10^3/uL MPV 10.1 (7.5-11.0) fL Gran % 67.5 H (36.0-66.0) % Immature Gran % (Auto) 0.6 H (0.00-0.4) % Nucleat RBC Rel Count 0.0 (0.00-0.1) % Eos # (Auto) 0.14 (0-0.5) x10^3/uL Immature Gran # (Auto) 0.08 H (0.00-0.03) x10^3u/L Absolute Lymphs (auto) 3.10 (1.0-4.6) x10^3/uL Absolute Monos (auto) 0.84 (0.0-1.3) x10^3/uL Absolute Nucleated RBC 0.00 (0.00-0.01) x10^3u/L Lymphocytes % 24.1 (24.0-44.0) % Monocytes % 6.5 (0.0-12.0) % Eosinophils % 1.1 (0.00-5.0) % Basophils % 0.2 (0.0-0.4) % Absolute Granulocytes 8.69 H (1.4-6.9) x10^3/uL Basophils # 0.03 (0-0.4) x10^3/uL Urinalys Dipstick Clnc MAIN LAB Urine Color YELLOW (YELLOW) Urine Appearance CLEAR (CLEAR) Urine pH 7.5 (5-6) Ur Specific Baker 1.020 (1.005-1.025) POC Urine Protein Conf NEGATIVE (Negative) Urine Ketones TRACE (NEGATIVE) Urine Nitrite NEGATIVE (NEGATIVE) Urine Bilirubin NEGATIVE (NEGATIVE) Urine Urobilinogen 0.2 (0-1) mg/dL Urine Leukocytes NEGATIVE (NEGATIVE) Urine WBC (Auto) NONE (0-5) /HPF Urine RBC (Auto) NONE (0-2) /HPF U Epithel Cells (Auto) NONE (FEW) /HPF Urine Bacteria (Auto) NONE SEEN (NEGATIVE) /HPF Urine RBC NEGATIVE (0-5) Woo/ul Urine Glucose NEGATIVE (NEGATIVE) mg/dL - Procedures and Test Procedures and Tests throughout Hospitalization: Therapy Orders & Screens 05/14/22 09:45 Standby STAT Comment: Diagnosis: ALANIS REPEAT Final Diagnosis/Problem List - Final Discharge Diagnosis/Problem (1) S/P repeat low transverse Current Visit: Yes Status: Acute Code(s): Z98.891 - HISTORY OF UTERINE SCAR FROM PREVIOUS SURGERY - Discharge Disposition: Home, Self-Care Condition: Stable Prescriptions: New Ibuprofen 800 mg PO Q8H PRN PRN #46 tablet MDD 3 PRN Reason: Moderate To Severe Pain No Action Omeprazole 20 mg PO DAILY Aspirin [Adult Low Dose Aspirin EC] 81 mg PO DAILY Follow up with: CASS TOURE MD [Primary Care Provider] - PAPI GEORGE DO [ACTIVE STAFF] - 3 weeks (NO HEAVY LIFTING NO DRIVING FOR 10 DAYS KEEP INCISION CLEAN AND DRY)
[2022-05-15] MEDS ORDERED: ENOXAPARIN SODIUM SQ ONE (08:00)
--- NOTE | 2022-05-15 08:40 | OP ---
SURGERY DATE/TIME: 05/13/2022 0841 PREOPERATIVE DIAGNOSIS: Intrauterine at 39 weeks and 1 day with previous section for repeat section. POSTOPERATIVE DIAGNOSIS: Intrauterine at 39 weeks and 1 day with previous section for repeat section. PROCEDURE: Repeat section, low flap transverse uterine incision, Pfannenstiel skin incision. SURGEON: Son Rodriguez D.O. A P MECHANIC: Josefa Ribera, surgical garment assembly supervisor. ANESTHESIA: Spinal. ESTIMATED BLOOD LOSS: 400 cc. COMPLICATIONS: None. INDICATIONS: The risks, benefits, indications and alternatives of the procedure were reviewed with the patient prior to procedure. The patient understood the risk of infection, bleeding, bowel injury, bladder injury, ureteral injury, pelvic infection, thromboembolic disorder associated with the surgery and desires to have this surgery as a possible means to alleviate her current medical condition. DESCRIPTION OF PROCEDURE AND FINDINGS: At this point the patient is taken to the operating room where her spinal anesthesia was found to be adequate. She was then prepared and draped in normal sterile fashion in the dorsal supine position with leftward tilt. A Pfannenstiel skin incision is made with a scalpel and carried through to the underlying layer of the fascia with a Bovie. The fascia was then incised in the midline and the incision extended laterally with Cordova scissors. The superior aspect of the fascial incision was then grasped Charlotte clamps elevated and the underlying rectus muscles dissected off bluntly. Attention is then turned to the inferior aspect of this incision which in similar fashion was grasped, tented up with Charlotte clamps and the rectus muscles dissected off bluntly. The rectus muscles were then at the midline and the peritoneum identified, tented up and entered sharply with Metzenbaum scissors. The peritoneal incision was then extended superiorly and inferiorly with good visualization of the bladder. A bladder blade was then inserted and the vesicouterine peritoneum identified, grasped with a pickup and entered sharply with Metzenbaum scissors. This incision was then extended laterally and the bladder flap created digitally. The bladder blade was then re-inserted and the lower uterine segment incised in transverse fashion with a scalpel. The uterine incision was then extended laterally digitally. The bladder blade was then removed and the infants head was delivered atraumatically. The nose and mouth were suctioned with bulb suction and the cord clamped and cut. The was then handed off to the awaiting nurses. The placenta was then removed manually. The uterus exteriorized and cleared of all clots and debris. The uterine incision was repaired with 1-0 chromic in running locked fashion. A second layer of the same suture was used to obtain excellent hemostasis. The uterus is then returned to the abdomen. The gutters were cleared of all clots and the peritoneal muscles closed in interrupted fashion using 2-0 chromic suture. The fascia was re-approximated with 0 Vicryl in running fashion. The subcutaneous layer was closed with 3-0 Vicryl suture and the skin was closed with absorbable flex called INSORB. The patient tolerated the procedure well. Sponge, lap, needle and instrument counts were correct x2. The patient was then taken to the recovery room in stable condition. The patient delivered a live baby girl at 0906 hours. The weight of the baby was 8 pounds 8 ounces. 's were 9 at 1 minute and 9 at 5 minutes.
[2022-05-15 09:47] VITALS: BP 125/75; PULSE 77
[2022-05-15 09:50] VITALS: O2SAT 97
[2022-05-15] MEDS ORDERED: FERREX 150 PO SCH (10:00)
[2022-05-15] MEDS ORDERED: Docusate Sodium 100 MG PO SCH (10:00)
[2022-05-15] MEDS ORDERED: Dulcolax 10 MG SUPP PR PRN (10:00)
== END 2022-05-15 17:15 | disposition home or self-care (01) | DRG 788 ==
LOC: MED SURG 04:55 → OBSVTOIN 04:55
PROVIDERS: ADMIT Obstetrics & Gynecology; ATTEND Obstetrics & Gynecology
PROC: 10D00Z1 Extraction of Products of Conception, Low, Open Approach (ICD-10-PCS; principal; 2022-05-14)
DX: O34.211 Maternal care for low transverse scar from previous cesarean delivery (principal); Z3A.39 39 weeks gestation of pregnancy; Z37.0 Single live birth; Z20.828 Contact with and (suspected) exposure to other viral communicable diseases
CPT/HCPCS: 36415; 62322; 64488; 76937; 76942; 80307; 81001; 81015; 85025; 85027; 85610; 85730; 86850; 86900; 86901; 87086; 94799; J0690; J1200; J1650; J2274; J2370; J2405; J2590; A9270-GY